=== PATIENT | male | born 1950 | race Caucasian/White ===

== ENCOUNTER 2018-04-03 11:43 | Emergency (ER) | payer BC, OTHER ==
[2018-04-03 12:01] VITALS: BP 145/91
[2018-04-03] MEDS ORDERED: Lidocaine 1% MPF* 2 ML VIAL INJ ONE (13:05)
[2018-04-03] MEDS ORDERED: Tetan/Diph/Pertus SYR(Tdap)* 0.5 ML SYR(BOOSTRIX) use SYR IM ONE (13:06)
[2018-04-03] MEDS ORDERED: Lidocaine 1%* 5 ML VIAL INJ ONE (13:11)
--- NOTE | 2018-04-03 13:49 | UC ---
Upper Extremity HPI - HPI Summary HPI Summary: 68-year-old male presents with a fishhook embedded in his right palmar hand. States occurred approximately 3 hours prior to arrival. He attempted to to remove his own unsuccessfully. He cut the hook and left a small amount exposed. Reports that this is a barbed hook. Last tetanus approximately 8 years ago. - History of Current Complaint Chief Complaint: UCUpperExtremity Stated Complaint: FOREIGN OBJECT- HAND Time Seen by Provider: 04/03/18 12:54 Hx Obtained From: Patient Pain Intensity: 2 - Allergies/Home Medications Allergies/Adverse Reactions: Allergies Allergy/AdvReac Type Severity Reaction Status Date / Time No Known Allergies Allergy Verified 04/03/18 12:01 Home Medications: Home Medications NK [No Home Medications Reported] 04/03/18 [History Confirmed 04/03/18] PMH/Surg Hx/FS Hx/Imm Hx Previously Healthy: Yes - Denies significant PMH - Surgical History Surgical History: None - Family History Known Family History: Positive: Non-Contributory - Social History Lives: With Family Alcohol Use: Occasionally Substance Use Type: None Smoking Status (MU): Never Smoked Tobacco Review of Systems All Other Systems Reviewed And Are Negative: Yes Constitutional: Negative: Fever, Chills Skin: Positive: Other - See HPI Motor: Negative: Decreased ROM, Weakness Neurovascular: Negative: Decreased Sensation Musculoskeletal: Negative: Arthralgia, Edema Is Patient Immunocompromised?: No Physical Exam - Summary Physical Exam Summary: GENERAL APPEARANCE: Well developed, well nourished, alert and cooperative, and appears to be in no acute distress. CARDIAC: Normal S1 and S2. No S3, S4 or murmurs. Rhythm is regular. There is no peripheral edema, cyanosis or pallor. Extremities are warm and well perfused. Capillary refill is less than 2 seconds. LUNGS: Clear to auscultation and percussion without rales, rhonchi, wheezing or diminished breath sounds. MUSKULOSKELETAL: ROM intact to all extremities. No joint erythema or tenderness. Normal muscular development. No significant deformity or joint abnormality. No edema. Peripheral pulses intact. NEUROLOGICAL: Strength and sensation symmetric and intact throughout. SKIN: Skin normal color, texture and turgor with no lesions or eruptions. There is an obvious small metallic foreign body penetrating the soft tissue of the palmar right hand over the hypothenar eminence. No active bleeding. Triage Information Reviewed: Yes Vital Signs: Initial Vital Signs Temp 98.4 F 04/03/18 11:58 Pulse 66 04/03/18 11:58 Resp 18 04/03/18 11:58 BP 145/91 04/03/18 11:58 Pulse Ox 100 04/03/18 11:58 Vital Signs Reviewed: Yes Procedures - Procedure Summary Procedure Summary: Procedure note: Removal of fish hook from right hand. Informed consent was obtained before procedure started and the appropriate timeout was taken. The area was prepped with Betadine. Good local anesthesia was achieved using 2 ml of lidocaine 1% without epinephrine. Attempted to push fish hook through but there was not enough of the hook remaining outside the soft tissue. A small 0.5 cm incision was made and the fish hook was successfully removed in its entirety. The wound was copiously irrigated with tap water. The wound margins were in good alignment and homeostasis was achieved using direct pressure therefore incision was not closed. Estimated blood loss was minimal. An adhesive dressing was applied to the area. Anticipatory guidance, as well as standard post-procedure care was discussed with patient. Return precautions are given. The patient tolerated the procedure well without complications. Diagnostics - Radiology No standard instances Radiology Interpretation Completed By: Radiologist Summary of Radiographic Findings: Patient Name: VIANEY OROURKE . Ordering Physician: Jen Ramos MD Acct.#: [id number]. : 1950 Age: 68 Sex: M Location: [facility]. Exam Date: 04/03 1204 ADM Status: REG ER. Order Information: HAND - RIGHT MINIMUM 3 VIEWS. Accession Number: [id number]. CPT: 69981. HISTORY: FB. COMPARISONS: None. VIEWS: 5 , Frontal, lateral, and oblique views of the right hand. FINDINGS: BONE DENSITY: Normal. BONES: There is no displaced fracture. JOINTS: There is advanced osteoarthritis of the first CMC and STT joints. There is mild. interphalangeal osteoarthritis. ALIGNMENT: There is no dislocation. SOFT TISSUES: Unremarkable. OTHER FINDINGS: There is a radiopaque foreign body within the soft tissues along the. hyperthenar eminence of the right hand without osseous abnormality. IMPRESSION: 1. OSTEOARTHRITIS. 2. RADIOPAQUE FOREIGN BODY IN THE SOFT TISSUES ALONG THE HYPOTHENAR EMINENCE OF THE RIGHT. HAND. 3. NO ACUTE OSSEOUS INJURY. IF SYMPTOMS PERSIST, RECOMMEND REPEAT IMAGING. Upper Extremity Course/Dx - Course Course Of Treatment: 68-year-old male presents with a fishhook embedded in his right palmar hand. States occurred approximately 3 hours prior to arrival. He attempted to to remove his own unsuccessfully. He cut the hook and left a small amount exposed. Reports that this is a barbed hook. Last tetanus approximately 8 years ago. The hook was successfully removed. Tetanus was updated. Wound care and warning symptoms were reviewed with the patient. Verbalizes understanding and agrees with POC. - Differential Dx/Diagnosis Provider Diagnosis: Fish hook injury of right hand Discharge - Sign-Out/Discharge Documenting (check all that apply): Patient Departure All imaging exams completed and their final reports reviewed: Yes - Discharge Plan Condition: Stable Disposition: HOME Patient Education Materials: Soft Tissue Foreign Body (ED) Referrals: Herson March MD [Primary Care Provider] - If Needed Additional Instructions: Your tetanus was up dated in the clinic today. Be sure to let your primary care provider know so that they may update your records. We we able to successfully remove the fish hook from your hand. The numbing medication that was used will begin to wear off in 2-3 hours. You may use an over the counter pain medication such as acetaminophen (Tylenol) or ibuprofen ( Advil, Motrin) according to directions as needed for pain. Keep the wound clean. Gently cleaning with a mild soap and water twice a day or any time your hand gets soiled should be sufficient. Apply a small amount of antibiotic ointment to the wound and cover with a dressing. Watch for signs of infection such as pain that is not managed with pain medication, swelling, redness that spreads, red streaks up your arm, pus draining from the wound, or fever greater than 100.5 F. Seek immediate medical attention should any of these occur. - Billing Disposition and Condition Condition: STABLE Disposition: Home
== END 2018-04-03 13:54 | disposition home or self-care (01) ==
LOC: UCEAST 11:43
DX: S60.551A Superficial foreign body of right hand, initial encounter (principal); W45.8XXA Other foreign body or object entering through skin, initial encounter; Y92.9 Unspecified place or not applicable
CPT/HCPCS: 10120; 90471; 90715; 96372; 99211; G0463